=== PATIENT | female | born 1950 | race Caucasian/White ===

== ENCOUNTER 2017-06-14 17:14 | Emergency (ER) | payer OTHER, MEDICAID ==
[~2017-06-14] VITALS: Ht 162.6 cm; Wt 72.6 kg
[2017-06-14 17:20] VITALS: BP_SYST 117
[2017-06-14] MEDS ORDERED: DIPHENHYDRAMINE INJ 50 MG/ML VIAL IM ONE (18:15)
[2017-06-14] MEDS ORDERED: IBUPROFEN 600 MG TABLET PO ONE (18:15)
[2017-06-14] MEDS ORDERED: DIPH-TET Vacc 0.5 ML VIAL I.M. ONE (19:30)
[2017-06-14 19:45] VITALS: BP_SYST 109
== END 2017-06-14 19:45 | disposition home or self-care (01) ==
LOC: SED 17:14
DX: S60.464A Insect bite (nonvenomous) of right ring finger, initial encounter (principal); W57.XXXA Bitten or stung by nonvenomous insect and other nonvenomous arthropods, initial encounter; Y93.89 Activity, other specified; Y92.89 Other specified places as the place of occurrence of the external cause; Y99.8 Other external cause status
CPT/HCPCS: 29130; 73140; 90471; 90714; 96372; 99284; J1200